=== PATIENT | male | born 1955 | race Caucasian/White ===

== ENCOUNTER 2022-10-07 17:53 | Emergency (ER) | payer MEDICARE, BC ==
[~2022-10-07] VITALS: Ht 175.3 cm; Wt 100.0 kg
[2022-10-07 18:34] VITALS: BP 122/69
[2022-10-07] MEDS ORDERED: TETanus/Pertussis (Acell)/Diphther VAC/PF (Tdap-Adult) 0.5ml syringe IMVAC ONE (19:10)
[2022-10-07] MEDS ORDERED: LIDOcaine 1.5% w/epinephrine 1:200,000 5ml ampul IJ ONE (19:10)
[2022-10-07] MEDS ORDERED: bacitracin 15gm ointment TP ONE (19:10)
[2022-10-07] MEDS ORDERED: cephalexin 250mg capsule PO STA (21:04)
[2022-10-07] MEDS ORDERED: HYDROcodone/acetaminophen 5mg/325mg tablet PO STA (21:04)
[2022-10-07] MEDS ORDERED: HYDR-3965 PO ×2 (21:30)
[2022-10-07] MEDS ORDERED: CEPH-585 PO (21:30)
[2022-10-09] MEDS ORDERED: HYDR-3973 PO (14:00)
== END 2022-10-07 23:01 | disposition home or self-care (01) ==
LOC: ER 17:56
DX: S82.832A Other fracture of upper and lower end of left fibula, initial encounter for closed fracture (principal); X58.XXXA Exposure to other specified factors, initial encounter; Y93.89 Activity, other specified; Y92.89 Other specified places as the place of occurrence of the external cause; Y99.8 Other external cause status
CPT/HCPCS: 12002; 73564; 73590; 73610; 90471; 90715; 99284; A6449

== ENCOUNTER 2022-10-19 15:29 | Emergency (ER) | payer MEDICARE, BC ==
[~2022-10-19] VITALS: Ht 175.3 cm; Wt 93.8 kg
[2022-10-19 15:33] VITALS: BP 147/82
== END 2022-10-19 17:17 | disposition home or self-care (01) ==
LOC: ER 15:29
DX: S81.811D Laceration without foreign body, right lower leg, subsequent encounter (principal); X58.XXXD Exposure to other specified factors, subsequent encounter
CPT/HCPCS: 99281; A6258; A6449